=== PATIENT | male | born 1970 ===

== ENCOUNTER 2017-07-30 12:38 | Day surgery (SDC) | payer OTHER ==
[~2017-07-30 12:38] MED LIST: Buffered Lidocaine 0.9% SYRIN* 5 ML/SYR SYRINGE INTRADERM ONE; Dexamethasone IV* 4 MG/ML 1 ML (4 MG) IV SLOW PU ONE; Dexamethasone IV* 4 MG/ML 1 ML (4 MG) ONE; Famotidine IV* 10 MG/ML 2 ML (20 mg) IV ONE; ceFAZolin 2 GM PREMIX (*) 2 GM/50 ML BAG IVPB ONE
[2017-07-30] MEDS ORDERED: Famotidine IV* 10 MG/ML 2 ML (20 mg) ONE (13:19)
[2017-07-30] MEDS ORDERED: Bupivacaine 0.25% SDV* 30 ML ONE (15:44)
[2017-07-30] MEDS ORDERED: EPINEPHRINE 1 MG/ML 1 ML VIAL ONE (15:45)
[2017-07-30] MEDS ORDERED: Ondansetron INJ* 2 MG/ML VIAL IV PRN (15:52)
[2017-07-30] MEDS ORDERED: fentaNYL* 50 MCG/ML 2 ML VIAL (100 MCG VIAL) IV PRN (15:52)
[2017-07-30] MEDS ORDERED: Naloxone* 0.4 MG/ML 1 ML VIAL IV PRN (15:52)
[2017-07-30] MEDS ORDERED: oxyCODONE/Acetamin 5/325 MG* TAB PO PRN (15:52)
[2017-07-30] MEDS ORDERED: DiMENhydriNATE IV* 50 MG/ML VIAL IV PUSH PRN (15:52)
[2017-07-30] MEDS ORDERED: Levalbuterol 1.25MG/0.5ML NEB ONE (15:52)
[2017-07-30] MEDS ORDERED: Levalbuterol 0.63MG/3ML NEB* UNIT OF USE INH ONE (15:52)
[2017-07-30] MEDS ORDERED: Atracurium* 10 MG/ML 10 ML VIAL ONE (16:01)
[2017-07-30] MEDS ORDERED: Midazolam* 1 MG/ML 10 ML VIAL (10 MG) ONE (16:01)
[2017-07-30] MEDS ORDERED: fentaNYL* 50 MCG/ML 5 ML VIAL (250 MCG VIAL) ONE (16:01)
[2017-07-30] MEDS ORDERED: Propofol* 10 MG/ML 20 ML BTL IV PUSH ONE (16:02)
[2017-07-30] MEDS ORDERED: Ketorolac INJ* 30 MG/ML 1 ML VIAL ONE (16:02)
[2017-07-30] MEDS ORDERED: Ondansetron INJ* 2 MG/ML VIAL ONE (16:02)
[2017-07-30] MEDS ORDERED: Lidocaine 2% PF * 5 ML VIAL ONE (16:05)
[2017-07-30] MEDS ORDERED: fentaNYL* 50 MCG/ML 2 ML VIAL (100 MCG VIAL) ONE (16:47)
[2017-07-30] MEDS ORDERED: Metoprolol Tartrate IV* 1 MG/ML 5 ML VIAL ONE (16:47)
[2017-07-30] MEDS ORDERED: methylPREDNISolone ACETATE 80* 80 MG/ML 1 ML VIAL ONE (17:05)
[2017-07-30] MEDS ORDERED: methylPREDNISolone ACETATE 40* 40 MG/ML 1 ML VIAL ONE (17:06)
[2017-07-30 18:32] VITALS: BP 128/87
--- NOTE | 2017-08-04 13:49 | OP ---
OPERATIVE REPORT: DATE OF OPERATION: 07/30/17. DATE OF : 70. SURGEON: Rohith Lema MD. MEDIA/INSTRUCTIONAL DESIGNER: JACI Franklin. A physician assistant professor of biochemistry was required for the entirety of the procedure for assistance with positioning, knee manipulation, instrumentation and closure. ANESTHESIOLOGIST: Danilo Locke MD. ANESTHESIA: General anesthesia, local anesthesia, 10 cc of 0.5% Marcaine. PRE-OP DIAGNOSIS: 1. Right knee medial meniscus tear. 2. Right knee mild medial compartment osteoarthritis. POST-OP DIAGNOSIS: 1. Right knee medial meniscus tear. 2. Right knee mild medial compartment osteoarthritis. 3. 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 OPERATIVE PROCEDURE: 1. Right knee arthroscopic partial medial meniscectomy. 2. Right knee arthroscopic chondroplasty of articular cartilage flap, trochlear groove. 3. Right knee injection, joint, of cortisone, Depo-Medrol 120 mg in 2 mL. ANTIBIOTICS: Ancef 2 g IV. IV FLUIDS: 1400 cc crystalloid. COMPLICATIONS: None. SPECIMEN: None. IMPLANTS: None. ESTIMATED BLOOD LOSS: Minimal. TOURNIQUET TIME: 28 minutes at 250 mmHg. INDICATIONS FOR PROCEDURE: The patient is a 47-year-old man, a prisoner at [facility] who had 1 year of significant pain in the medial aspect of his right knee, including some pain and mechanical symptoms while sleeping and pain with activities of daily living. As detailed in my clinic notes and history and physical, the patient responded insufficiently to nonoperative management and opted for an operat camille procedure. I even ordered a second MRI scan because of the poor quality of the first MRI. Given the patient's me dial compartment degenerative changes on x-ray and MRI, I was a little guarded in my optimism for a p artial medial meniscectomy. I discussed the risks and potential complications of the procedure including bleeding, infection, ner ve or blood vessel injury, knee pain, stiffness, osteoarthritis. DESCRIPTION OF PROCEDURE: Preoperatively, in preop holding, written consent was signed. Operative e xtremity was marked in preoperative holding. The patient was taken back to the operating room and pl aced supine on operating room table. General anesthesia was induced. A tourniquet was placed around the proximal right thigh but not yet elevated. Distal right thigh was placed in a circumferential th igh ahmadi. Table was elevated and the foot of the table was dropped. The leg was prepped with Chlo raPrep and sterilely draped. Surgical time-out was performed. Esmarch was applied and tourniquet was elevated to 250 mmHg. Diagnostic arthroscopy was commenced. I started at the knee patellofemoral compartment. There were noted some articular cartilage defects in this compartment. One was small and more central. The oth er was more medially located in the trochlear groove. It was mostly in the proximal to distal direct ion and appeared perhaps to have some instability to the articular cartilage around it. While moving down to the medial compartment, I noted some loose bodies in the medial gutter. These w ere removed by aspiration. I then went to the medial compartment. There was some larger loose dana s present. These were evacuated. There is some chondral wear in this compartment especially the medi al femoral condyle, grade 2 to 3. No significant instability to that cartilage. There was some tear ing of the meniscus. There was a horizontal tear about the posterior horn of the medial meniscus. A t the junction of the posterior horn and body and in the posterior body there was more of a complex s haped tear. I created an anteromedial knee portal under visualization. I debrided the medial meniscus back to a stable rim using arthroscopic shaver and arthroscopic biters working from the anteromedial and then t he anterolateral portals. The remaining meniscus was stable. I did not debride the horizontal teari ng in the posterior horn back to its end-point as this likely would have gone all the way to the caps ule. However, I did debride this tear and it appeared stable at the conclusion of my partial menisce ctomy. I continued my diagnostic arthroscopy. ACL intact. Moved to the lateral compartment and no articula r cartilage injury or meniscus tear noted. I had removed synovitic tissue about the anterior aspect of the knee. I returned to the patellofemoral compartment. I evaluated the articular cartilage defects with an ar throscopic probe. The central or lateral side of that lesion had some unstable articular cartilage n ext to it. I debrided this with a biter and shaver back to its stable rim. Very minimal articular c artilage was removed. Remaining edges about the articular cartilage defect were stable. I did one last search for loose bodies and found none. Instruments and fluid were removed from the knee. I then decided, as the medial compartment degenerative changes had seemed worse then anticipated base d on review of x-ray and MRI preoperative and the patient had articular cartilage of the trochlear gr oove, I decided to also apply a cortisone injection to the knee. The skin incisions were first closed with [id number] stitches using nylon 4-0 suture. I next injected into the knee joint 120 mg of Depo-Medrol through an anterolateral approach. This wa s contained in 2 cc, 1 cc consisted of 40 mg/mL and 1 cc consisted of 80 mg/mL. The subcutaneous tissue about the knee was then injected with 10 cc of 0.5% Marcaine. Xeroform over incisions, 4x4s, sterile Webril, Tyrone bandage. The patient had his tourniquet dropped. The patient was awakened and extubated and brought to the [facility]. DISPOSITION: The patient was recommended to receive aspirin for DVT prophylaxis and Percocet for juan c n control as needed postoperatively although the care home system will discharge his medications. Haley gomez should follow up with me in 10 to 14 days postoperatively and we provided wound care instructions. [id number]/[facility] #: [id number]
== END 2017-07-30 19:13 | disposition home or self-care (01) ==
LOC: OR 12:38
PROVIDERS: ATTEND Orthopaedic Surgery
DX: M23.203 Derangement of unspecified medial meniscus due to old tear or injury, right knee (principal); M17.11 Unilateral primary osteoarthritis, right knee; M23.91 Unspecified internal derangement of right knee; Z72.0 Tobacco use; I10 Essential (primary) hypertension
CPT/HCPCS: A9270-GY; J0690; J1030; J1040; J1100; J1885; J2250; J2405; J2704; J3010; J3490